=== PATIENT | female | born 1965 | race Caucasian/White ===

== ENCOUNTER 2025-01-03 06:31 | Day surgery (SDC) | payer OTHER ==
[~2025-01-03 06:31] MED LIST: Lactated Ringers 1,000 ML IV SCH; Sodium Chloride 0.9% 10 ML Syringe FLUSH PRN; Sodium Chloride 0.9% 2.5 ML Syringe FLUSH PRN; Sodium Chloride 0.9% 20 ML SDV IV PRN
[2025-01-03] MEDS: Lactated Ringers 1,000 ML IV SCH (07:07)
[2025-01-03] MEDS ORDERED: Lidocaine 2% 5 ML SDV ONE (07:23)
[2025-01-03] MEDS ORDERED: propofoL 500 MG/50 ML 50 ML ONE (07:23)
[2025-01-03] MEDS ORDERED: Propofol 200 MG/20 ML SDV ONE (08:15)
[2025-01-03] MEDS ORDERED: Glycopyrrolate 0.2 MG/ML SDV ONE (08:20)
== END 2025-01-03 09:13 | disposition home or self-care (01) ==
LOC: MW.SDS 06:31
PROVIDERS: ATTEND Surgery
DX: D50.9 Iron deficiency anemia, unspecified (principal); K57.30 Diverticulosis of large intestine without perforation or abscess without bleeding; K29.50 Unspecified chronic gastritis without bleeding; E03.9 Hypothyroidism, unspecified; J45.909 Unspecified asthma, uncomplicated; Z79.890 Hormone replacement therapy; Z79.899 Other long term (current) drug therapy
CPT/HCPCS: 43239; 45378; J1596; J2003; J2704; J7120; 00813